=== PATIENT | female | born 1935 | race Caucasian/White ===

== ENCOUNTER 2022-07-16 11:33 | Emergency (ER) | payer OTHER ==
[2022-07-16 11:45] VITALS: BP 139/87; PULSE 86; RESP 16; TEMP 98.8; BMI 20.1
[2022-07-16 13:25] LABS: HEMATOCRIT 40.9 % (32.4-45.2); HEMOGLOBIN 13.8 G/dL (10.7-15.3); MCH 31.2 pg (25.7-33.7); MCHC 33.8 g/dl (32.0-36.0); MEAN CELL VOLUME 92.4 fl (80-96); MEAN PLT VOLUME 8.4 fl (7.5-11.1); PLATELET COUNT 183.1 10^3/uL (134-434); RBC 4.43 10^6/uL (3.60-5.2); RDW 14.3 % (11.6-15.6); WHITE BLOOD COUNT 4.5 10^3/uL (4.0-10.8)
[2022-07-16 13:40] LABS: ALBUMIN 3.7 g/dl (3.4-5.0); BILIRUBIN,TOTAL 1.1 mg/dl (0.2-1); CREATININE 0.8 mg/dl (0.55-1.3); TOT PROT 6.6 g/dl (6.4-8.2)
[2022-07-16 13:57] LABS: PLATELET ESTIMATE ADEQUATE
== END 2022-07-16 14:23 | disposition home or self-care (01) ==
LOC: FER 11:33
DX: J06.9 Acute upper respiratory infection, unspecified (principal)
CPT/HCPCS: 0241U-QW; 36415; 71046-TC-FY; 80053; 81003; 81015; 85027; 87086; 99284-25